=== PATIENT | female | born 1970 | race Caucasian/White ===

== ENCOUNTER 2019-03-01 09:06 | Outpatient (REF) | payer OTHER, SELFPAY ==
[2019-03-01 12:44] LABS: ALT 24 U/L (12-78); AST 18 U/L (15-37); Albumin 3.5 g/dL (3.4-5.0); Alkaline Phosphatase 52 U/L (46-116); Anion Gap 8.2 mmol/L (3-11); BUN 16 mg/dL (7-18); Bilirubin, Total 0.3 mg/dL (0.2-1.0); CO2 23.8 mmol/L (21.0-32.0); CREATININE 0.69 mg/dL (0.55-1.02); Calcium 9.3 mg/dL (8.5-10.1); Chloride 108 mmol/L (98-107); Glucose 74 mg/dL (70-100); Potassium 4.3 mmol/L (3.5-5.1); Sodium 140 mmol/L (136-145); Total Protein 6.3 g/dL (6.4-8.2)
[2019-03-01 13:07] LABS: HCT 38.9 % (36.0-46.0); HGB 12.8 g/dL (12.0-15.5); Mean Corp. HGB Concentration 32.9 g/dL (32.0-36.0); Mean Corpuscular Hemoglobin 30.6 pg (27.0-33.0); Mean Corpuscular Volume 93.1 fL (80-95); Mean Platelet Volume 10.1 fL (8.0-11.0); Platelet Count 324 x1000/uL (130-400); RBC 4.18 m/cumm (4.00-5.20); RBC Distribution Width 13.6 % (11.7-14.6); White Blood Cell Count 8.04 k/cumm (4.4-10.8)
[2019-03-01 14:31] LABS: Calculated LDL 156; Cholesterol 244 mg/dL (50-200); HDL Cholesterol 75 mg/dL (40-60); Triglyceride 66 mg/dL (30-150)
== END 2019-03-01 09:26 ==
LOC: NCHCN 09:06
PROVIDERS: PCP Family Medicine; Visit Provider Nurse Practitioner Family
DX: E78.5 Hyperlipidemia, unspecified (principal); Z00.00 Encounter for general adult medical examination without abnormal findings
CPT/HCPCS: 80053; 80061; 83721; 85027

== ENCOUNTER 2019-09-05 11:20 | Outpatient (CLI) | payer OTHER, MEDICAID, SELFPAY ==
[2019-09-05 12:58] LABS: TSH (W/Ref FT4) 1.06 uIU/mL (0.36-3.74)
== END 2019-09-05 11:40 ==
PROVIDERS: PCP Nurse Practitioner Family; Visit Provider Nurse Practitioner Family
DX: N93.9 Abnormal uterine and vaginal bleeding, unspecified (principal); N92.6 Irregular menstruation, unspecified
CPT/HCPCS: 36415; 84443

== ENCOUNTER 2019-09-05 11:53 | Outpatient (REF) | payer OTHER, SELFPAY ==
[2019-09-06 15:00] LABS: Chlamydia Result Negative (Negative); GC Result Negative (Negative)
== END 2019-09-05 12:13 ==
LOC: LBN 11:53
PROVIDERS: PCP Nurse Practitioner Family; Visit Provider Nurse Practitioner Family
DX: Z11.3 Encounter for screening for infections with a predominantly sexual mode of transmission (principal)
CPT/HCPCS: 87491; 87591

== ENCOUNTER 2019-09-12 01:28 | Outpatient (CLI) | payer OTHER, MEDICAID, SELFPAY ==
--- NOTE | 2019-09-12 08:09 | DI.US_ITS ---
EXAM: US PELVIS TRANSVAGINAL CLINICAL HISTORY: abnormal vaginal bleeding, N93.9 TECHNIQUE: Ultrasound performed using standard protocol. Transabdominal and transvaginal exams wer e performed. COMPARISON: No exams were available for comparison FINDINGS: The transabdominal images are limited by lack of bladder distention. The uterus measures 9.3 x 4.8 x 5.5 cm. No fibroids are seen. An IUD is noted within the endometrium and appears appropriately positi on. There is a small amount of free fluid in the cul-de-sac. The endometrial stripe measures 3 millim eters in thickness. A simple cyst is noted on the right ovary measuring 3.3 cm in greatest dimension. The left ovary appears normal. There is no evidence of hydronephrosis. IMPRESSION: 3.3 centimeter right ovarian cyst. Small amount of fluid in the cul-de-sac. Appropriately positioned IUD.
== END 2019-09-12 01:48 ==
PROVIDERS: PCP Nurse Practitioner Family; Visit Provider Nurse Practitioner Family
DX: N93.9 Abnormal uterine and vaginal bleeding, unspecified (principal); N83.291 Other ovarian cyst, right side; Z30.431 Encounter for routine checking of intrauterine contraceptive device
CPT/HCPCS: 76830; 76856

== ENCOUNTER 2019-09-19 15:10 | Outpatient (REF) | payer MEDICAID, SELFPAY ==
--- NOTE | 2019-09-19 13:29 | PAPFT_PTH ---
PATIENT: Aileen Narvaez LOC: [facility] U#:[id number] AGE/SX: 48/F ROOM: RE09/19/[address]: Aries Hodgson MD : 1970 BED: DIS: 09/19/2019 SPEC #: [id number] RECD: 09/19/19 17:08 STATUS: NEVAEH FANG #: [id number] DIPTI: 09/19/19 13:[address]: Aries Hodgson DEPT: [facility] Cytology RECD BY: Christiane Medina ENTERED: 09/19/19 17:09 SP TYPE: PAPFT OTHR DR: Shayan Breen Tissues: 1 - CX/ENDOCX FOR PAP SMEARS Procedures: PAP THIN PREP/UVM Screening HPV DNA PROBE Comments: [id number]
== END 2019-09-19 15:30 ==
LOC: LBN 15:10
PROVIDERS: PCP Nurse Practitioner Family; Visit Provider Obstetrics & Gynecology
DX: Z12.4 Encounter for screening for malignant neoplasm of cervix (principal); Z11.51 Encounter for screening for human papillomavirus (HPV)
CPT/HCPCS: 88142; 87624

== ENCOUNTER 2022-09-10 17:41 | Outpatient (REF) | payer MEDICAID, SELFPAY ==
[2022-09-10 19:47] LABS: Abs Immature Grans 0.03 10^3/uL (0.0-0.06); Absolute Basophil Count 0.06 10^3/uL (0.0-0.2); Absolute Eosinophil Count 0.08 10^3/uL (0.0-0.7); Absolute Lymphocyte Count 2.83 10^3/uL (1.2-3.4); Absolute Monocyte Count 0.63 10^3/uL (0.1-0.8); Absolute Neutrophil Count 5.23 10^3/uL (1.2-6.7); Basophils % 0.7; Eosinophils % 0.9; HCT 41.4 % (36.0-46.0); HGB 13.9 g/dL (11.2-15.7); Immature Grans % 0.3; Lymphocytes % 31.9; MCH 30.6 pg (27.0-33.0); MCHC 33.6 % (32.0-36.0); MCV 91 fL (80-95); Monocytes % 7.1; Neutrophils % 59.1; Platelet Count 350 10^3/uL (130-400); RBC 4.54 10^6/uL (3.93-5.22); RDW 12.1 % (11.7-14.6); RDW-SD 40.7 fL; WBC 8.86 10^3/uL (4.4-10.8)
[2022-09-10 20:11] LABS: ALT 19 U/L (14-59); AST 18 U/L (15-37); Albumin 4.1 g/dL (3.4-5.0); Alkaline Phosphatase 57 U/L (46-116); Anion Gap 10.6 mmol/L (3-11); BUN 11 mg/dL (7-18); Bilirubin, Total 0.4 mg/dL (0.2-1.0); CO2 25.4 mmol/L (21.0-32.0); CREATININE 0.9 mg/dL (0.55-1.02); Calcium 9.4 mg/dL (8.5-10.1); Calculated LDL 150 mg/dL (<100); Chloride 103 mmol/L (98-107); Cholesterol 220 mg/dL (<200); Estimated GFR 78.37 (mL/min/1.73m2); Glucose 89 mg/dL (74-106); HDL Cholesterol 54 mg/dL (40-60); Potassium 4.5 mmol/L (3.5-5.1); Sodium 139 mmol/L (136-145); Triglyceride 82 mg/dL (<150)
== END 2022-09-10 17:42 | disposition home or self-care (01) ==
LOC: NCHCN 17:41
PROVIDERS: Visit Provider Nurse Practitioner Family
DX: E78.5 Hyperlipidemia, unspecified (principal); Z13.1 Encounter for screening for diabetes mellitus; Z82.49 Family history of ischemic heart disease and other diseases of the circulatory system; Z13.0 Encounter for screening for diseases of the blood and blood-forming organs and certain disorders involving the immune mechanism
CPT/HCPCS: 80053; 80061; 85025

== ENCOUNTER 2022-09-26 10:01 | Outpatient (CLI) | payer MEDICAID, SELFPAY ==
--- OUTSIDE RECORDS SUMMARY | 2022-09-26 10:03 | XMS_ITS | Continuity of Care Document ---
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 Finger laceration Active Crush injury Active Nail avulsion Active Medications Medication Status Dose Units Route Directions Qty Days Start End Ins tructions Date Date Tramadol Active 50 MG PO THREE TIMES 22 July (Ultram) 50 A DAY , mg Tablet 2021 12:00am Sulfamethoxa Active 1 TAB PO TWICE A DAY 14 14 July zole-Trimeth , oprim 2021 (Bactrim Ds) 12:00am 800-160 mg Tablet Ibuprofen Active 600 MG PO FOUR TIMES 06 August DAILY 2021 12:00am Immunizations Immunization Event Date Not Given Dose [employer] Vac cine Reason Number Number Informatio n Statement (VIS) Deta il Tetanus, [id number] Diphtheria, 2021 Pertussis (Tdap) Procedures Procedure Date Performed Status XR finger second LT min 2V July 26, 2022 3:02pm comple ijeoma Relevant Diagnostic Tests and/or Laboratory Data Diagnostic Imaging Reports Report Dictated Date/Time Dictated By Status Radiology Report July 26, 2022 4:13pm MD adrian Cherry ompleted [facility] [address] [address] Patient Name: DAVI BEAULIEU Rec ord#: [id number] [address]: [address] [place] [address] Account#: [id number] City/State/[place] [address]: Genaro zheng MD Insurance: Commerci al Other /Age/Sex: 1970/51/F Self Pay Admit/Reg Date: 07/26/[address]: WENDY Galeano sa Location: ED.SM/ PCP: Pcp-Md MORALES Barboza Date of Service: 07/26/22 Order (s): XR finger second LT min 2V CPT Code: 96181 Report Number: [id number] Reason for Exam: steel spoke under nail EXAMINATION: XR finger second LT min 2V CLINICAL INDICATION: Female, 51 years o ld. steel spoke under nail COMPARISON: None. FINDINGS: Osseous Structures: There is moderately displaced, mildly comminuted fracture of the tuft of the distal left second ph alanx which is likely open given the distortion of the base of the nailbed. N o additional fracture or dislocation demonstrated as imaged. Joint Spaces: Joint spaces are preserve d. Bone Mineralization: Normal bone minera lization. Soft Tissues: As above. No radiodense f oreign body. IMPRESSION: 1. Comminuted open tuft fracture of the distal left second phalanx Electronically signed by: Sebastian Grover MD 07/26/2022 3:13 PM [facility] Dictated By: Sebastian Grover MD 07/26/221612 Signed By: Sebastian Grover MD 07/26/22 161 5 TD/TT: 07/26/221612Tech: [id number] cc: JUDI; PCPNO* ANNEMARIE Colbert; Pcp-Md MORALES Barboza Vital Signs Vital Reading Result Reference Range Collection Date/ Time Height 170.18 cm July 26 022 2:00pm Weight 90.71 kg July 26 2:00pm Body Temperature 98.1 [degF] 97.6-99.6 July 26, 2022 2:00pm Heart Rate 71 /min 60-90 July 26 4:32pm Respiratory rate 16 /min 12-24 July 26, 2022 4:32pm Oxygen saturation by Pulse 99 % 95-100 [facility] 2021 4:32pm oximetry BP Systolic 132 mm[Hg] 90-140 July 26 4:32pm BP Diastolic 74 mm[Hg] 60-90 July 26 4:32pm BMI (Body Mass Index) 31.3 kg/m2 July 082021 2:00pm Advance Directives Advance Directive Response Recorded Date/Time Advance Directives No July 26, 2022 1:47pm Health Care Proxy No July 26, 2022 1:47pm Insurance Providers Guarantor DAVI BEAULIEU Address [address] [place] [id number] Contact Info. Home Phone: Payer Policy Id Coverage Id Subscriber's Subscriber Id Effective E xpiration Name Date Date Commercial [id number] DAVI BEAULIEU [id number] Other Encounters Encounter Location(s) Arrival/Admit Date Discharge/Depart Date Provider(s) Departed Chris Montero July 26, 2022 July 26 null Emergency Medical 1:45pm 4:41pm Ctr-Emergency Plan of Treatment Future Tests Future scheduled test information is unavailable Pending Tests Pending diagnostic test information is unavailable Future Visits Future appointment information is unavailable Referrals to Other Providers Reason for Referral Start Provider Provider Contact Provider Address Referral Date Information Dano Escobar , Work Phone: Pcp-Md MORALES Barboza Future Procedures Future procedure information is unavailable Future Medications Future medication information is unavailable Patient Instructions How Bones Heal ED Laceration: All Closures ED EXTREMITY LACERATION Goals Acute Goals Radiologic exam indicates distal tuft fr acture of your left index finger. Positive partial nail avulsion. Follow-up with orthopedic surg linda listed on your discharge papers. Call Thursday referral MD's office Thursday for evaluatio n next week. You may keep bandage that was placed in the emergency department on your finger for the next 48-72 hours. Do not get bandage wet. Have prescriptions filled, take medication as prescribed. You may supplement pain medication with ibuprofen or Tylenol every 4-6 hours.
[2022-09-28 11:40] LABS: Apolipoprotein B, S 127 mg/dL; Lipoprotein (a) 84 nmol/L (<75)
== END 2022-09-26 10:02 | disposition home or self-care (01) ==
LOC: LBO 10:02
PROVIDERS: Visit Provider Internal Medicine Cardiovascular Disease
DX: E78.5 Hyperlipidemia, unspecified (principal)
CPT/HCPCS: 36415; 82172; 83695

== ENCOUNTER 2022-10-27 01:05 | Outpatient (CLI) | payer MEDICAID, SELFPAY ==
--- NOTE | 2022-10-27 08:00 | DI.MAMMO_ITS ---
Exam(s) MAMMO SCREENING EXAM: MAMMO SCREENING CLINICAL HISTORY: SCREENING, Z12.31 TECHNIQUE: Mammograms were interpreted according to the usual protocol including computer analysis w [employer] CAD system, tomosynthesis and C-view imaging. COMPARISON: 2012 through 2019 FINDINGS: The breasts are composed of heterogeneously dense fibroglandular densities, Breast Density category C . Right breast: No suspicious masses or suspicious microcalcifications are seen. No skin thickening or abnormal axillary lymph nodes are seen. There has been no significant change from prior exams. Left breast: Smoothly marginated nodule is now seen in the inferior posterior left breast. There is a nodular asymmetry in the posterior lateral aspect of the left breast which may represent overlying fibroglandular tissue. An additional nodular asymmetry is seen in the subareolar tissue of the lower left breast. Spot compression views and ultrasound are requested for further evaluation. No suspic ious calcifications are seen. IMPRESSION: BI-RADS Category 0 - Assessment Incomplete: Need additional imaging evaluation Breast Density Category C, heterogeneously Dense.
== END 2022-10-27 01:25 ==
LOC: DI 01:05
PROVIDERS: Visit Provider Nurse Practitioner Family
DX: Z12.31 Encounter for screening mammogram for malignant neoplasm of breast (principal); R92.8 Other abnormal and inconclusive findings on diagnostic imaging of breast
CPT/HCPCS: 77063; 77067

== ENCOUNTER 2022-10-31 00:51 | Outpatient (CLI) | payer MEDICAID, SELFPAY ==
--- NOTE | 2022-10-31 10:45 | DI.US_ITS ---
Exam(s) MG MAMMO SCREEN CALL BACK UNI US BREAST LT LIMITED EXAM: MG MAMMO SCREEN CALL BACK UNI CLINICAL HISTORY: SMOOTHLY MARGINATED NODULE, INFERIOR POSTERIOR LT BREAST. TECHNIQUE: Craniocaudal and mediolateral oblique spot compression digital Mammography views of the l eft breast followed by Tomosynthesis and left breast ultrasound. COMPARISON: MG SCREENING REMA MAMMO W/CAD DIGI from 06/01/2013 MG Screening Bilat Mammo from 11/15/2015 MG R. Spot - Same Day from 11/22/2015 US RIGHT BREAST ULTRASOUND {[id number]} from 11/22/2015 MG Diagnostic Right Mammo from 04/01/2016 MG Screening Bilat Mammo from 11/19/2017 MG SCREENING - Call Back - Bilat from 11/26/2017 MG MG MAMMO LORI SCREENING BILAT-M2 from 08/20/2020 MG MG MAMMO SCREENING from 10/27/2022 US US BREAST LT LIMITED from 10/31/2022 FINDINGS: Mammography/Tomosynthesis: Masses/Architectural Distortion: Circumscribed ovoid nodule there are cysts in the lower central left breast. No persistent abnormality in the lateral left breast, consistent with overlying fibroglandu lar tissue. Microcalcifictions: No suspicious pleomorphic-type are seen. Skin Thickening/Nipple Retraction: None. Left breast US: Echotexture: Normal appearance of the glandular tissue. Shadowing: No suspicious foci. Cyst: 4 x 3 x 8 millimeters cyst 6 o'clock position 5 cm from the nipple corresponding to the mammogr aphic nodule. Additional 4 millimeter cyst noted 5 o'clock position 1 cm from the nipple. Solid lesions: None seen. Ductal dilation: None. IMPRESSION: 1. No evidence of malignancy is noted. 2. Unless there is more urgent need, follow-up screening mammography is recommended, as per [employer] guidelines. 3. The findings were discussed with the patient on the date of the examination. BI-RADS Category 2 - Benign Findings Breast Density - Category C - Heterogeneously dense A mammogram that demonstrates density of C or D indicates the patient's breast tissue is dense. Dense breast tissue is very common and is not abnormal, but dense breast tissue can make it harder to find cancer on a mammogram. Also, dense breast tissue may increase their breast cancer risk. This informa tion about the result of the mammogram report was provided to the patient to raise their awareness. U se this report when you speak with the patient about their risks for breast cancer, which includes th eir family history. At that time, you may recommend for more screening tests (Ultrasound or MRI) as t hey might be useful based on their risk. A negative radiographic report should not delay biopsy if a dominant or clinically suspicious mass is present. Up to ten percent of cancers are not identified on mammography. A negative report may reinforce clinical impression. Adenosis and dense breasts may obscure an underlying neoplasm. False positive reports average 6 to 10%. Patient will receive a letter notifying them of these results.
== END 2022-10-31 01:11 ==
LOC: DI 00:51
PROVIDERS: Visit Provider Nurse Practitioner Family
DX: Z12.31 Encounter for screening mammogram for malignant neoplasm of breast (principal); R92.8 Other abnormal and inconclusive findings on diagnostic imaging of breast; N60.02 Solitary cyst of left breast
CPT/HCPCS: 76642; 77063; 77067

== ENCOUNTER 2022-11-12 02:45 | Outpatient (CLI) | payer MEDICAID, SELFPAY ==
[2022-11-12 13:07] LABS: Calculated LDL 109 mg/dL (<100); Cholesterol 194 mg/dL (<200); HDL Cholesterol 67 mg/dL (40-60); Triglyceride 91 mg/dL (<150)
[2022-11-12 13:20] LABS: Creatine Kinase 63 U/L (26-192)
[2022-11-14 09:36] LABS: Apolipoprotein B, S 92 mg/dL
== END 2022-11-12 02:46 | disposition home or self-care (01) ==
PROVIDERS: Visit Provider Internal Medicine Cardiovascular Disease
DX: E78.5 Hyperlipidemia, unspecified (principal)
CPT/HCPCS: 36415; 80061; 82172; 82550

== ENCOUNTER 2023-01-19 03:01 | Outpatient (CLI) | payer MEDICAID, SELFPAY ==
[2023-01-19 17:02] LABS: Calculated LDL 133 mg/dL (<100); Cholesterol 223 mg/dL (<200); HDL Cholesterol 74 mg/dL (40-60); Triglyceride 83 mg/dL (<150)
== END 2023-01-19 03:02 | disposition home or self-care (01) ==
LOC: LBO 03:01
DX: E78.5 Hyperlipidemia, unspecified (principal)
CPT/HCPCS: 36415; 80061

== ENCOUNTER 2023-03-12 03:17 | Outpatient (CLI) | payer MEDICAID, SELFPAY ==
[2023-03-12 14:52] LABS: Calculated LDL 78 mg/dL (<100); Cholesterol 170 mg/dL (<200); HDL Cholesterol 74 mg/dL (40-60); Triglyceride 93 mg/dL (<150)
== END 2023-03-12 03:18 | disposition home or self-care (01) ==
DX: E78.5 Hyperlipidemia, unspecified (principal)
CPT/HCPCS: 36415; 80061

== ENCOUNTER 2023-06-29 09:40 | Day surgery (SDC) | payer BC, SELFPAY ==
--- NOTE | 2023-06-28 19:50 | W.PM.DSUDISC ---
Date of service: 06/29/23 Time of Service: 12:22 Discharge Plan Disposition Patient Disposition: Home Condition: Good Discharge Details Reason For Visit: Screening colonoscopy Attending Provider: Nitesh Brown Primary Care Provider: Maru Baires Home Meds and New Rx's Prescriptions: Continued ezetimibe 10 mg tablet 10 mg PO DAILY rosuvastatin 5 mg tablet 5 mg PO .every other day ibuprofen 600 mg tablet 400 mg Patient Comments: TAKE 1 TABLET BY MOUTH 4 TIMES DAILY Discontinued bisacodyl [Dulcolax (bisacodyl)] 5 mg tablet,delayed release (DR/EC) 5 mg PO ONCE Qty: 4 0RF Rx Instructions: Colonoscopy Bowel Prep- Per Instructions polyethylene glycol 3350 17 gram/dose powder 238 g PO ONCE Qty: 238 0RF Rx Instructions: Colonoscopy Bowel Prep- Per Instructions Discharge Instructions Additional Instructions: Aileen, we were able to do your colonoscopy today without any difficulty. The quality of your prep was excellent. I did not see any signs of tumors, polyps, or any other abnormalities. You will need another screening colonoscopy in 10 years. 1. If tolerated, consume a soft, low fiber diet for 1-2 days. 2. Do not drive, drink alcohol, operate machinery, make critical decisions, or do activities that require coordination or balance for 24 hours. 3. Because air was put into your colon during the procedure, expelling air from your rectum (passing gas or farting) is normal. 4. You may not have a bowel movement for 1-3 days because of the colonoscopy prep. This is normal. 5. Go directly to the emergency room if you notice any of the following: Develop chills (warm to touch), or if you have a thermometer and your temperature is above 101 Difficulty breathing or difficultly swallowing Persistent vomiting Severe abdominal pain, other than gas cramps Severe chest pain Black, tarry stools Any bleeding ? exceeding one tablespoon 6. Call your physician if the site where your intravenous was started becomes red, swollen, painful, and warm to touch. 7. Your physician has reviewed your pre-procedure medications. Please continue to take those medications as previously ordered. You will be given specific information/education regarding any changes to your medications before leaving. Activity:: Activity as Tolerated Diet:: As Tolerated Discharge Orders Discharge Orders: Discharge Order (Routine); Ordered 06/28/23 Ordered By: Nitesh Brown DS: Diagnosis Discharge Diagnosis (1) Screen for colon cancer: Status: Acute Asessment and Plan: Negative screening colonoscopy; follow-up in 10 years
--- NOTE | 2023-06-28 19:57 | COLE_ITS ---
Date of service: 06/29/23 Time of Service: : Colonoscopy Report Date of procedure: 06/29/23 Pre-op diagnosis general: Screening colonoscopy Post-op diagnosis procedure note: other (Negative screening colonoscopy) Procedure: Colonoscopy Surgeon: Nitesh Brown Anesthesia Type: General:No Airway Estimated blood loss (mL): 0 Pathology: none sent Complications: None Disposition: same day Indications: Aileen is a 52 year old woman who needs a screening colonoscopy Prep: Miralax/Dulcolax Procedure Start Time: 11:50 Procedure End Time: 12:10 Retraction Time: 11 Findings: Negative screening colonoscopy Procedure Description: After the induction of monitored anesthetic care, and with the patient in left lateral decubitus position, I began by performing an external anorectal exam.? Perineum and skin were normal, as was the anal verge.? There was no evidence of external hemorrhoids.? Next, I performed a digital rectal exam.? I did not appreciate any abnormal findings.? Next, I advanced a colonoscope into the rectal vault.? I performed retroflexion.? This appeared normal.? Using insufflation, I then advanced the colonoscope beyond the rectal folds and into the sigmoid colon before advancing towards the cecum.? The scope was noted to be in the cecum by identification of the ileocecal valve and appendiceal orifice.? I then began withdrawing the colonoscope using repeated irrigation as necessary for full evaluation of the colonic mucosa. ?Once the scope was withdrawn to the level of the rectum, great care was taken to examine portions of the rectal folds.? I did not see any signs of tumors, polyps, or any other abnormalities. Quality of the bowel prep score according to the Hughson bowel prep scale was 3, 3, 3 from right to left. finally, the scope was withdrawn and the patient was brought to the same-day surgery recovery unit as the anesthetic wore off. ?The findings and instructions were shared with the patient prior to discharge.
[2023-06-29 10:15] VITALS: BP 118/93; PULSE 78; RESP 20; TEMP 36.3; O2SAT 99
[2023-06-29] MEDS: Lactated Ringers 1,000 ML 80 ML IV (10:35)
--- NOTE | 2023-06-29 11:30 | W.ANESPRE ---
General Info Date of Service Date Performed: 06/29/23 Height: 5 ft 8 in Weight: 89.2 kg Body Mass Index (BMI): 29.9 Surgical Procedure: Operation Date: 06/29/23 12:50 Proposed Procedure Side Surgeon p Colonoscopy Nitesh Brown MD Meds Allergies and Home Medications Allergies Allergy/AdvReac Type Severity Reaction Status Date / Time Penicillins Allergy Intermediate Hives Verified 06/29/23 10:10 Home Medication Medication Instructions Recorded ezetimibe 10 mg tablet 10 mg PO DAILY 06/16/23 rosuvastatin 5 mg tablet 5 mg PO .every other day 06/16/23 ibuprofen 600 mg tablet 400 mg 06/29/23 Current Visit Medications: Current Medications Generic Name Dose Route Start Last Admin Trade Name Freq PRN Reason Stop Dose Admin Hyoscyamine Sulfate 0.125 mg 06/28/23 19:58 Hyoscyamine 0.125 Mg Sl/Oral/Chew SL 07/28/23 19:57 DIRECTED PRN Ringer's Solution 1,000 mls @ 80 mls/hr 06/29/23 06:00 06/29/23 10:35 IV 07/26/23 23:59 80 mls/hr INFUSION TRACEY Administration IV Miscellaneous Supplies 1 each 06/29/23 06:00 Iv Access IV 07/26/23 23:59 DIRECTED TRACEY Ondansetron HCl 4 mg 06/28/23 19:58 Ondansetron 4 Mg/2 Ml Vial IVP 07/28/23 19:57 Q4H PRN PRN Nausea / Vomiting Sodium Chloride 0 ml 06/29/23 06:00 Normal Saline Flush 10 Ml Syr IV 07/26/23 23:59 PRN PRN Sodium Chloride 0 ml 06/29/23 06:00 Normal Saline 10 Ml Vial IJ 07/26/23 23:59 DIRECTED PRN Sterile Water 0 ml 06/29/23 06:00 Water,Injection,Sterile 10 Ml Vial IJ 07/26/23 23:59 DIRECTED PRN PFSH Active Problems Active Problems: Problem Status Onset Code Screen for colon cancer Z12.11 Nevus, atypical D22.9 IUD surveillance 11/09/15 Z30.431 Medical History Medical History Hyperlipidemia Neck pain Family history of cardiovascular disease Family history of malignant neoplasm of skin Abnormal Pap ? HGSIL 1998 HGSIL? Colpo/Bx Negative Paps NL since Surgical History Surgical History S/P tonsillectomy cyst removal back 2012 Tobacco Smoking/Tobacco Use Status: Former Tobacco Use Alcohol Alcohol Intake: current Alcohol intake frequency: a few times a month Substance Use Substance use: Daily Substance use type: marijuana and other Details: CBD/THC drops at night for sleep , t-2. Alcohol: t-2, 2 beers Vital Signs and Lab Results Vital Signs Most Recent Vital Signs in EMR: Most Recent Vital Signs Temp Pulse Resp BP Pulse Ox 36.3 C L 78 20 118/93 H 99 06/29/23 10:15 06/29/23 10:15 06/29/23 10:15 06/29/23 10:15 06/29/23 10:15 Lab Results Blood Type / Crossmatch: No Data to Display Complete Blood Count: No Data to Display Complete Metabolic Panel: No Data to Display Liver Function Panel: No Data to Display Coagulation Panel: No Data to Display Cardiac Panel: No Data to Display Arterial Blood Gas: No Data to Display Venous Blood Gas: No Data to Display Pancreas Panel: No Data to Display Thyroid Panel: No Data to Display Infectious Disease: No Data to Display Blood Cultures: No Data to Display Toxicology Panel: No Data to Display Panel: No Data to Display Anesthesia Assessment and Plan Anesthesia History Personal History: No History of Anesthesia Complications Family History: No Family History of Anesthesia Complications Exercise Tolerance Exercise Tolerance: Metabolic Equivalents>4 Pertinent Negatives Pertinent Negatives: No Symptoms of GERD, No Major Cardiovascular Symptoms or Complaints and No Major Pulmonary Symptoms or Complaints Cardiac & Pulmonary Exam Cardiac Exam: Normal S1/S2 Heart Sounds Pulmonary Exam: Clear Bilateral Breath Sounds Implantable Cardiac Device Does patient have a Pacemaker or an ICD?: No Airway Exam Known Difficult Airway: No Mallampati Class: 1 Mouth Opening: Normal (> 3cm) Thyromental Distance: Greater than 3 cm Neck Range of Motion: Full ROM Neck Circumference: Normal Teeth Condition: Normal Dentition ASA Classification ASA Score: ASA 2 Emergency Case?: No NPO Status NPO Status: NPO Clears >2 hours, Solids >8 hours Status Status: Negative HCG Anesthesia Plan Resuscitation Status: Full Code Anesthesia Technique: General Anesthesia Airway Planned: Natural Airway Monitors Used: Standard Monitors
[2023-06-29 11:34] VITALS: BMI 29.9
[2023-06-29 12:20] VITALS: BP 108/79; PULSE 73; RESP 18; TEMP 36.5; O2SAT 97
--- NOTE | 2023-06-29 12:28 | W.ANESPOSTOP ---
Postoperative Evaluation Date, Time and Location Date Performed: 06/29/23 Time Performed: 12:28 Patient Location: Day Surgery Unit Vital Signs Most Recent Imported Vital Signs: Most Recent Vital Signs Temp Pulse Resp BP Pulse Ox 36.5 C 73 18 108/79 97 06/29/23 12:20 06/29/23 12:20 06/29/23 12:20 06/29/23 12:20 06/29/23 12:20 Pain Score Most Recent Pain Score: Most Recent Pain Score Pain Level 0 06/29/23 12:20 Assessment Mental Status: Awake (Alert & Oriented to Patient Baseline) Airway and Respiratory Function: Patent airway with normal (patient baseline) respiratory exam Cardiovascular Function: Hemodynamically Stable Hydration Status: Adequately Hydrated Nausea & Vomiting: No Nausea or Vomiting Pain: Pt. Denies Any Pain Peripheral Nerve Block: Patient did not receive a nerve block
[2023-06-29 12:45] VITALS: BP 106/84; PULSE 60; RESP 18; TEMP 36.5; O2SAT 99
== END 2023-06-29 12:52 | disposition home or self-care (01) ==
PROVIDERS: PCP Family Medicine; Visit Provider Surgery
PROC: 0DJD8ZZ Inspection of Lower Intestinal Tract, Via Natural or Artificial Opening Endoscopic (ICD-10-PCS; CPT 45378; principal; 2023-06-29 12:45)
DX: Z12.11 Encounter for screening for malignant neoplasm of colon (principal)
CPT/HCPCS: 45378; 81025

== ENCOUNTER 2023-12-01 11:53 | Outpatient (REF) | payer BC, SELFPAY ==
--- NOTE | 2023-12-01 11:15 | PAPFT_PTH ---
PATIENT: Aileen Narvaez LOC: [facility] U#:[id number] AGE/SX: 52/F ROOM: RE12/01/[address]: Elyssa Serrano NP : 1970 BED: DIS: 12/01/2023 SPEC #: [id number] RECD: 12/01/23 12:53 STATUS: NEVAEH LEONCIO #: [id number] DIPTI: 12/01/23 11:[address]: Elyssa Serrano NP DEPT: [facility] Cytology RECD BY: Christiane Medina ENTERED: 12/01/23 12:53 SP TYPE: PAPFT RYANNE DR: Unknown,Unknown Tissues: 1 - CX/ENDOCX FOR PAP SMEARS Procedures: PAP THIN PREP/UVM Screening HPV DNA PROBE Comments: [id number]
== END 2023-12-01 11:54 | disposition home or self-care (01) ==
LOC: LBN 11:53
PROVIDERS: Visit Provider Nurse Practitioner Women's Health
DX: Z12.4 Encounter for screening for malignant neoplasm of cervix (principal); Z11.51 Encounter for screening for human papillomavirus (HPV); R87.810 Cervical high risk human papillomavirus (HPV) DNA test positive
CPT/HCPCS: 88142; 87624

== ENCOUNTER → 2023-12-11 01:04 | Outpatient (CLI) | payer BC, SELFPAY ==
--- NOTE | 2023-12-11 07:30 | DI.MAMMO_ITS ---
Exam(s) MAMMO SCREENING EXAM: MAMMO SCREENING CLINICAL HISTORY: screening,z12.39. TECHNIQUE: Bilateral full field digital CC and MLO mammographic images were obtained with 3D tomosyn thesis and utilizing computer aided detection (CAD). COMPARISON: Prior mammograms were reviewed. Prior breast ultrasound also reviewed. FINDINGS: Fibroglandular tissue pattern is again noted be moderately dense. There are no obvious new spiculated masses nor malignant appearing microcalcification groups. There is no significant architectural distortion nor skin thickening-retraction. IMPRESSION: No radiographic evidence of malignancy. BI-RADS Category 1 - Negative Breast Density - Category C - Heterogeneously dense Breast density Category C or D implies that the patient has dense breast tissue. Dense breast tissue can make it harder to find cancer on a mammogram. Dense breast tissue is also associated with an incr eased risk of breast cancer. This information about the result of the mammogram report was provided to the patient to raise their awareness. Use this report when you speak with the patient about their risks for breast cancer, which includes their family history. At that time, you may recommend additional screening tests (Ultrasoun d or MRI) as these tests may add significant information. A negative radiographic report should not delay biopsy if a dominant or clinically suspicious mass is present. Up to ten percent of cancers are not identified on mammography. A negative report may reinforce clinical impression. Adenosis and dense breasts may obscure an underlying neoplasm. False positive reports average 6 to 10%. Patient will receive a letter notifying them of these results.
== END ==
PROVIDERS: Visit Provider Nurse Practitioner Women's Health
DX: Z12.31 Encounter for screening mammogram for malignant neoplasm of breast (principal); R92.323 Mammographic fibroglandular density, bilateral breasts
CPT/HCPCS: 77063; 77067

== ENCOUNTER 2024-09-23 22:04 | Outpatient (REF) | payer OTHER, SELFPAY ==
[2024-09-23 19:46] LABS: ALT 29 U/L (14-59); AST 23 U/L (15-37); Alkaline Phosphatase 81 U/L (46-116); Anion Gap 11.6 mmol/L (3-11); BUN 19 mg/dL (7-18); Bilirubin, Total 0.35 mg/dL (0.2-1.0); CO2 24.4 mmol/L (21.0-32.0); CREATININE 0.9 mg/dL (0.55-1.02); Calcium 9.5 mg/dL (8.5-10.1); Calculated LDL 68 mg/dL (<100); Chloride 105 mmol/L (98-107); Cholesterol 167 mg/dL (<200); Glucose 103 mg/dL (74-106); HDL Cholesterol 73 mg/dL (40-60); Potassium 4.3 mmol/L (3.5-5.1); Sodium 141 mmol/L (136-145); Total Protein 7.3 g/dL (6.4-8.2); Triglyceride 132 mg/dL (<150)
== END 2024-09-23 22:05 | disposition home or self-care (01) ==
LOC: NCHCN 22:04
PROVIDERS: Visit Provider Nurse Practitioner Family
DX: Z51.81 Encounter for therapeutic drug level monitoring (principal); E78.5 Hyperlipidemia, unspecified
CPT/HCPCS: 80053; 80061

== ENCOUNTER 2024-12-06 15:17 | Outpatient (REF) | payer OTHER, SELFPAY ==
--- NOTE | 2024-12-06 14:55 | PAPFT_PTH ---
PATIENT: Aileen Narvaez LOC: [facility] U#:[id number] AGE/SX: 53/F ROOM: RE12/06/[address]: Elyssa Serrano NP : 1970 BED: DIS: 12/06/2024 SPEC #: [id number] RECD: 12/06/24 17:57 STATUS: NEVAEH FANG #: [id number] DIPTI: 12/06/24 14:[address]: Elyssa Serrano NP DEPT: [facility] Cytology RECD BY: Christiane Medina ENTERED: 12/06/24 17:57 SP TYPE: PAPFT RYANNE DR: Unknown,Unknown Tissues: 1 - CX/ENDOCX FOR PAP SMEARS Procedures: PAP THIN PREP/UVM Screening HPV DNA PROBE Comments: [id number] (HPV 16 & 18/45)
== END 2024-12-06 15:18 | disposition home or self-care (01) ==
LOC: LBN 15:17
PROVIDERS: Visit Provider Nurse Practitioner Women's Health
DX: Z12.4 Encounter for screening for malignant neoplasm of cervix (principal)
CPT/HCPCS: 88142; 87624

== ENCOUNTER 2025-01-13 00:30 | Outpatient (CLI) | payer OTHER, SELFPAY ==
--- NOTE | 2025-01-13 | DI.MAMMO_ITS ---
Exam(s) MAMMO SCREENING EXAM: MAMMO SCREENING CLINICAL HISTORY: screening. TECHNIQUE: Bilateral full field digital CC and MLO mammographic images were obtained with 3D tomosyn thesis and utilizing computer aided detection (CAD). COMPARISON: Prior mammograms were reviewed. FINDINGS: There has been no significant change in the appearance and distribution of the fibroglandular tissue. There are no new spiculated masses nor malignant appearing microcalcification groups. There is no significant architectural distortion nor skin thickening-retraction. IMPRESSION: No radiographic evidence of malignancy. BI-RADS Category 1 - Negative Breast Density - Category C - The breast are heterogeneously dense, which may obscure small masses. Breast density Category C or D implies that the patient has dense breast tissue. Dense breast tissue can make it harder to find cancer on a mammogram. Dense breast tissue is also associated with an incr eased risk of breast cancer. This information about the result of the mammogram report was provided to the patient to raise their awareness. Use this report when you speak with the patient about their risks for breast cancer, which includes their family history. At that time, you may recommend additional screening tests (Ultrasoun d or MRI) as these tests may add significant information. A negative radiographic report should not delay biopsy if a dominant or clinically suspicious mass is present. Up to ten percent of cancers are not identified on mammography. A negative report may reinforce clinical impression. Adenosis and dense breasts may obscure an underlying neoplasm. False positive reports average 6 to 10%. Patient will receive a letter notifying them of these results.
== END 2025-01-13 00:50 ==
LOC: DI 00:31
PROVIDERS: PCP Nurse Practitioner Family; Visit Provider Nurse Practitioner Women's Health
DX: Z12.31 Encounter for screening mammogram for malignant neoplasm of breast (principal); R92.333 Mammographic heterogeneous density, bilateral breasts
CPT/HCPCS: 77063; 77067